=== PATIENT | male | born 1960 | race Hispanic/Latino ===

== ENCOUNTER → 2019-06-22 | Outpatient (CLI) | payer OTHER ==
--- NOTE | 2019-06-22 12:58 | NUR ---
MBSS COMPLETED. DEEP PENETRATION WITH THIN LIQUIDS VIA LARGE CUP SIP. RECOMMEND REGULAR TEXTURE, THIN LIQUIDS; PILLS WHOLE WITH LIQUIDS. RECOMMENDATIONS PROVIDED VIA WRITTEN MODALITY AND VERBALLY IN Pt AND 'S [employer]OPI LANGUAGE OF [place]. ALL QUESTIONS ANSWERED AT THIS TIME. Addendum: 06/22/19 at 1300 by ROSARIO SELLERS, [facility] Amended: Links added.
== END | disposition home or self-care (01) ==
LOC: RAH 08:57
PROVIDERS: ATTEND Internal Medicine Gastroenterology
DX: R13.13 Dysphagia, pharyngeal phase (principal); R63.3 Feeding difficulties; I10 Essential (primary) hypertension; E11.9 Type 2 diabetes mellitus without complications
CPT/HCPCS: 74230; 92611

== ENCOUNTER → 2019-07-12 | Outpatient (CLI) | payer OTHER | END | disposition home or self-care (01) | LOC: SHCH 08:12 | PROVIDERS: ATTEND Internal Medicine Cardiovascular Disease | DX: I25.5 Ischemic cardiomyopathy (principal) | CPT/HCPCS: 93306 ==

== ENCOUNTER 2019-09-14 05:49 | Day surgery (SDC) | payer OTHER ==
[~2019-09-14] VITALS: Ht 167.6 cm; Wt 83.9 kg
[~2019-09-14 05:49] MED LIST: AMIO200T5 PO; ASPI-555 PO; ATOR20TA65 PO; FURO20TA4 PO; ICOS1CAP PO; LEVE500T19 PO; METO-408 PO
[2019-09-14] MEDS ORDERED: SODIUM CHLORIDE 0.9% 1000ML 1,000 ML IV ONE (06:08)
[2019-09-14 06:33] VITALS: BP 139/67
[2019-09-14] MEDS ORDERED: PROPOFOL 10 MG/ML 20ML VIAL IV ONE (07:47)
[2019-09-14 08:05] VITALS: BP 96/56
[2019-09-14 08:09] VITALS: BP 99/56
[2019-09-14 08:14] VITALS: BP 108/53
[2019-09-14 08:19] VITALS: BP 98/59
[2019-09-14 08:24] VITALS: BP 97/51
--- NOTE | 2019-09-14 08:30 | NUR ---
Update Awaiting ride.
== END 2019-09-14 09:04 | disposition home or self-care (01) ==
LOC: ENDO 05:49 → DAH 05:49 → ENDO 09:04
PROVIDERS: ATTEND Internal Medicine
DX: K59.00 Constipation, unspecified (principal); K63.5 Polyp of colon; K64.0 First degree hemorrhoids; K57.30 Diverticulosis of large intestine without perforation or abscess without bleeding; I10 Essential (primary) hypertension; E78.5 Hyperlipidemia, unspecified; I25.10 Atherosclerotic heart disease of native coronary artery without angina pectoris; E11.9 Type 2 diabetes mellitus without complications; I25.2 Old myocardial infarction; Z86.73 Personal history of transient ischemic attack (TIA), and cerebral infarction without residual deficits; Z95.1 Presence of aortocoronary bypass graft; Z72.89 Other problems related to lifestyle; Z79.899 Other long term (current) drug therapy; Z87.891 Personal history of nicotine dependence; Z79.82 Long term (current) use of aspirin; Z82.49 Family history of ischemic heart disease and other diseases of the circulatory system; Z83.3 Family history of diabetes mellitus
CPT/HCPCS: 45380; 82948 ×2; 88305; A4215; A4221; A4222; A4223; A4606; A4615; A4663; J2704; J7030

== ENCOUNTER → 2023-04-11 | Outpatient (CLI) | payer OTHER ==
[~2023-04-11] MED LIST changes: -AMIO200T5 PO; +AMIO200T68 PO; -ASPI-555 PO; +ASPI-556 PO
== END | disposition home or self-care (01) ==
LOC: SHCH 09:10
PROVIDERS: ATTEND Internal Medicine Cardiovascular Disease
DX: I70.202 Unspecified atherosclerosis of native arteries of extremities, left leg (principal)
CPT/HCPCS: 93925